=== PATIENT | female | born 1950 | race Caucasian/White ===

== ENCOUNTER 2019-09-02 17:51 | Emergency (ER) | payer MEDICARE, OTHER ==
[~2019-09-02] VITALS: Ht 160 cm; Wt 61.2 kg
[~2019-09-02 17:51] MED LIST: CHOL10002 PO; CITA20 PO
[2019-09-02] MEDS ORDERED: Vibramycin100 MG PO (18:26)
== END 2019-09-02 18:42 | disposition home or self-care (01) ==
LOC: ER 17:51
DX: S51.831A Puncture wound without foreign body of right forearm, initial encounter (principal); W55.03XA Scratched by cat, initial encounter; Z79.899 Other long term (current) drug therapy; F32.9 Major depressive disorder, single episode, unspecified; F17.210 Nicotine dependence, cigarettes, uncomplicated
CPT/HCPCS: 99282